=== PATIENT | male | born 1950 | race Caucasian/White ===

== ENCOUNTER 2019-03-15 12:45 | Emergency (ER) | payer OTHER, MEDICAID ==
[~2019-03-15] VITALS: Ht 154.9 cm; Wt 54.0 kg
--- NOTE | 2019-03-15 12:45 | NUR ---
Patient BIBA ACLS, transferred to bed 3. RN evaluating patient at bedside.
[2019-03-15 12:48] VITALS: BP 146/93
--- NOTE | 2019-03-15 12:50 | NUR ---
Dr. Davis evaluating patient at bedside.
--- NOTE | 2019-03-15 13:00 | NUR ---
[facility] AND [facility] COORDINATOR FROM [facility] DAY CARE FOR ALOC. PER EMS PT NEUROLOGICALLY NOT AT BASE LINE ; CAN'T TALK , DROOLING X TODAY. BLOOD SUGAR 71. HX: MR, HTN, GERD,EPILEPSY. AT ER PT CAN SPEAK SLOWLY,OREITED TO HIS NAME. PATIENT POSITIONED FOR COMFORT; HOB ELEVATED; BEDRAILS UP X2; BED DOWN. ER MD MADE AWARE OF PT STATUS.
[2019-03-15] MEDS ORDERED: PIPERACILLIN/TAZOBACTAM 3.375 GM in DEXT 5% MINI-BAG PLUS 50 ML IV ONE (13:05)
[2019-03-15] MEDS ORDERED: NACL 0.9% 1,500 ML IV SCH (13:05)
[2019-03-15] MEDS ORDERED: ALBUTEROL SULFATE/IPRATROPIU 3 ML SOL IH ONE (13:10)
--- NOTE | 2019-03-15 13:17 | NUR ---
xray tech at bedside.
[2019-03-15] MEDS ORDERED: PIPERACILLIN/TAZOBACTAM 3.375 GM VIAL IV ONE (13:25)
[2019-03-15 14:25] LABS: ACETONE, SERUM NEGATIVE (NEGATIVE)
[2019-03-15 14:27] LABS: BASOPHILS % (AUTO) 0.1 % (0.0-2.0); EOSINOPHILS # (AUTO) 0.1 K/uL (0-0.4); EOSINOPHILS % (AUTO) 0.7 % (0.0-4.0); HEMATOCRIT 44.1 % (36-52); HEMOGLOBIN 14.9 g/dL (12.0-18.0); LYMPHOCYTES # (AUTO) 6.1 K/uL (2.0-11.5); LYMPHOCYTES % (AUTO) 61.9 % (20.5-51.1); MEAN CORPUSCULAR HEMOGLOBIN 33 pg (27-31); MEAN CORPUSCULAR HGB CONC 34 g/dL (33-37); MEAN CORPUSCULAR VOLUME 97.3 fL (80-94); MONOCYTES # (AUTO) 0.4 K/uL (0.8-1.0); MONOCYTES % (AUTO) 3.6 % (1.7-9.3); NEUTROPHILS # (AUTO) 3.3 K/uL (1.8-7.7); NEUTROPHILS % (AUTO) 33.7 % (42.2-75.2); PLATELET COUNT (AUTO) 227 K/uL (140-450); RED BLOOD CELL COUNT(AUTO) 4.54 MIL/uL (4.20-6.10); RED CELL DISTRIBUTION WIDTH 14.2 % (11.6-13.7); WHITE BLOOD COUNT (AUTO) 9.8 K/uL (4.8-10.8)
[2019-03-15 14:28] LABS: ANION GAP 10.9 (8-16); CARBON DIOXIDE 30.2 mmol/L (21-32); CHLORIDE 102 mmol/L (98-107); CREATININE 0.6 mg/dL (0.7-1.3); GLUCOSE 71 mg/dL (74-106); POTASSIUM 4.1 mmol/L (3.5-5.1); SODIUM SERUM 139 mmol/L (136-145); UREA NITROGEN, BLOOD 10 mg/dL (7-18)
[2019-03-15 14:45] LABS: ALBUMIN 3.4 g/dL (3.4-5.0); ASPARTATE AMINOTRANSFERASE 23 U/L (15-37); MAGNESIUM 2.1 mg/dL (1.8-2.4); TOTAL BILIRUBIN 0.2 mg/dL (0.0-1.0)
[2019-03-15 16:01] LABS: BILIRUBIN,URINE NEGATIVE (NEGATIVE); BLOOD, URINE 2+ (NEGATIVE); COLOR,URINE YELLOW (YELLOW); LEUKOCYTE ESTERASE ,URINE 1+ (NEGATIVE); NITRITE, URINE NEGATIVE (NEGATIVE); PH,URINE 6.5 (5.0-9.0); UGLUCOSE NEGATIVE (NEGATIVE)
--- NOTE | 2019-03-15 16:03 | NUR ---
Patient appears to be resting comfortably in bed. Vital Signs within normal limits. Respirations even and unlabored.will continue to monitor.
[2019-03-15 17:12] VITALS: BP 103/35
--- NOTE | 2019-03-15 17:12 | NUR ---
Patient discharged with v/s stable. Written and verbal after care instructions given and explained. Patient verbalized understanding. Ambulatory with W/C .All questions addressed prior to discharge. Advised to follow up with PMD.
[2019-03-15 17:13] LABS: APPEARANCE,URINE HAZY (CLEAR)
[2019-03-15 17:30] LABS: RBC,URINE >100 /HPF (0-5); WBC,URINE 0-5 /HPF (0-5)
== END 2019-03-15 17:12 | disposition home or self-care (01) ==
LOC: MED 12:45
DX: E86.0 Dehydration (principal); E86.1 Hypovolemia; G80.9 Cerebral palsy, unspecified; F73 Profound intellectual disabilities; G80.0 Spastic quadriplegic cerebral palsy
CPT/HCPCS: 36415; 36600; 70450; 71045; 80053; 80173; 81001; 82009; 82803; 83605; 83735; 84484; 85025; 87040; 87086; 87205; 89220; 93005; 94640; 96365; 99284; C1758; J2543; J7030; J7060; J7620; Q0092; 87070

== ENCOUNTER 2021-11-07 17:13 | Inpatient (IN) | payer OTHER, MEDICAID, SELFPAY ==
[~2021-11-07] VITALS: Ht 165.1 cm; Wt 74.8 kg
[2021-11-07 17:18] VITALS: BP 140/83
--- NOTE | 2021-11-07 17:59 | NUR ---
BIBA TO ER [facility]
--- NOTE | 2021-11-07 18:41 | NUR ---
pt taken to xray via [facility]
--- NOTE | 2021-11-07 18:47 | NUR ---
LINDSEY ANTONY AT [facility]. [phone]. CALL FOR UPDATES
--- NOTE | 2021-11-07 18:47 | NUR ---
PTS CAREGIVER LUDIVINALASHONDA DENISE CALLED FROM [facility]; FOR QUESTIONS AND UPDATE CALL LINDSEY ANTONY [phone]
--- NOTE | 2021-11-07 18:48 | NUR ---
[facility]
[2021-11-07] MEDS ORDERED: AZITHROMYCIN 500 MG in DEXTROSE 5% 250 ML IV ONE (19:00)
--- NOTE | 2021-11-07 19:00 | NUR ---
PT WAS ON 2L N/C PER MEDICS, SPO2 100%. TOOK PT OFF 02, NO RESPIRATORY DISTRESS NOTED, SPO2 95%. DR MENARD MADE AWARE
--- NOTE | 2021-11-07 19:30 | NUR ---
REPORT GIVEN TO ESTEFANIA CEE, TRANSFER OF CARE AT THIS TIME
--- NOTE | 2021-11-07 19:53 | NUR ---
SKIP TENDER TEXTED FOR ADMISSION AT 1947
[2021-11-07 21:48] LABS: BASOPHILS % (AUTO) 0.4 % (0.0-2.0); EOSINOPHILS # (AUTO) 0.3 K/uL (0-0.4); EOSINOPHILS % (AUTO) 4.3 % (0.0-4.0); HEMATOCRIT 39.8 % (36-52); HEMOGLOBIN 13.2 g/dL (12.0-18.0); LYMPHOCYTES % (AUTO) 46.4 % (20.5-51.1); MEAN CORPUSCULAR HEMOGLOBIN 32 pg (27-31); MEAN CORPUSCULAR HGB CONC 33 g/dL (33-37); MEAN CORPUSCULAR VOLUME 96.5 fL (80-94); MONOCYTES # (AUTO) 0.4 K/uL (0.8-1.0); MONOCYTES % (AUTO) 6.3 % (1.7-9.3); NEUTROPHILS # (AUTO) 2.8 K/uL (1.8-7.7); NEUTROPHILS % (AUTO) 42.6 % (42.2-75.2); PLATELET COUNT (AUTO) 248 K/uL (140-450); RED BLOOD CELL COUNT(AUTO) 4.12 MIL/uL (4.20-6.10); RED CELL DISTRIBUTION WIDTH 13.6 % (11.6-13.7); WHITE BLOOD COUNT (AUTO) 6.6 K/uL (4.8-10.8)
[2021-11-07 22:01] LABS: ALBUMIN 2.9 g/dL (3.4-5.0); ANION GAP 12.3 (8-16); ASPARTATE AMINOTRANSFERASE 27 U/L (15-37); CARBON DIOXIDE 24.4 mmol/L (21-32); CHLORIDE 107 mmol/L (98-107); CREATININE 0.6 mg/dL (0.6-1.3); GLUCOSE 93 mg/dL (74-106); POTASSIUM 4.7 mmol/L (3.5-5.1); SODIUM SERUM 139 mmol/L (136-145); TOTAL BILIRUBIN 0.3 mg/dL (0.0-1.0); UREA NITROGEN, BLOOD 16 mg/dL (7-18)
[2021-11-07] MEDS ORDERED: AZITHROMYCIN 500 MG INJ VIAL IV ONE (23:50)
[2021-11-07] MEDS ORDERED: cefTRIAXone 1,000 MG VIAL ONE (23:51)
--- NOTE | 2021-11-08 01:00 | NUR ---
PT PULLED OUT IV UNDERNEATH FROM BANDAGE. MEDS WERE COMPLETE AT THE TIME.
[2021-11-08] MEDS ORDERED: ACET-2619 PO (06:02)
[2021-11-08] MEDS ORDERED: BISM262S40 PO (06:08)
[2021-11-08] MEDS ORDERED: CALC-1305 PO (06:08)
[2021-11-08] MEDS ORDERED: CETI10SG1 PO (06:08)
[2021-11-08] MEDS ORDERED: FERR325E14 PO (06:10)
[2021-11-08] MEDS ORDERED: [UNRECOGNIZED DRUG - CODE] PO (06:24)
[2021-11-08] MEDS ORDERED: LORA10TA19 PO (06:24)
[2021-11-08] MEDS ORDERED: TAMS0.4C96 PO (06:24)
[2021-11-08] MEDS ORDERED: MONT10TA35 PO (06:24)
[2021-11-08] MEDS ORDERED: [UNRECOGNIZED DRUG - OTHER] (06:24)
[2021-11-08] MEDS ORDERED: LOPE1TAB14 PO (06:24)
--- NOTE | 2021-11-08 07:30 | NUR ---
RECEIVED REPORT FROM ESTEFANIA CEE, TRANSFER OF CARE AT THIS TIME
--- NOTE | 2021-11-08 10:19 | NUR ---
PT RESTING IN BED WITH EVEN AND UNLABORED RESPIRATIONS, NO SIGNS OF RESPIRATORY DISTRESS. PT REPOSITIONED FOR COMFORT, ALL NEEDS MET AT THIS TIME
--- NOTE | 2021-11-08 12:30 | NUR ---
PT ASSISTED WITH LUNCH.
[2021-11-08] MEDS ORDERED: BISMUTH SUBSALICYLATE 15 ML UDBTL PO SCH (13:15)
[2021-11-08] MEDS ORDERED: POTASSIUM CHLORIDE 10 MEQ TABER PO PRN (13:20)
[2021-11-08] MEDS ORDERED: MAG SULF 2000 MG/WATER PREMIX 50 ML IV PRN (13:20)
[2021-11-08] MEDS ORDERED: ALBUTEROL SULFATE/IPRATROPIU 3 ML SOL IH PRN (13:20)
[2021-11-08] MEDS ORDERED: MORPHINE SULFATE 2 MG/ML SYR IVP PRN (13:25)
[2021-11-08] MEDS ORDERED: ONDANSETRON 4 MG/2 ML VIAL IM/IVP PRN (13:25)
[2021-11-08] MEDS ORDERED: DOCUSATE SODIUM 100 MG GELCAP PO PRN (13:25)
[2021-11-08] MEDS ORDERED: ACETAMINOPHEN 325 MG TAB PO PRN (13:25)
[2021-11-08] MEDS ORDERED: ZOLPIDEM 5 MG TAB PO PRN (13:25)
[2021-11-08] MEDS ORDERED: LORazepam 2 MG/ML VIAL IM/IVP PRN (13:25)
[2021-11-08] MEDS ORDERED: ALBUTEROL HFA MDI 90 MCG/ACTUATION 8 GM INH PRN (13:25)
[2021-11-08] MEDS ORDERED: HYDROcodone/APAP 5/325 MG 1 TAB TAB PO PRN (13:25)
--- NOTE | 2021-11-08 13:27 | NUR ---
PT RESTING IN BED WITH EVEN AND UNLABORED RESPIRATIONS, NO SIGNS OF DISTRESS. PT SPO2 96% RA.
[2021-11-08] MEDS ORDERED: PRIM250T70 PO (13:29)
[2021-11-08 13:56] LABS: PROTHROMBIN TIME 10.2 secs (10.8-13.4)
[2021-11-08] MEDS: NACL 0.9% 1,000 ML IV SCH (14:00)
[2021-11-08 14:07] LABS: CHOL/HDL RATIO 3.5 (1-4.5); THYROID STIMULATING HORMONE 1.59 uIU/mL (0.34-3.74)
[2021-11-08] MEDS: PRIMIDONE 50 MG TAB PO SCH ×2 (15:13→21:00)
--- NOTE | 2021-11-08 16:30 | NUR ---
PT SOILED HIMSELF, PT CLEANED, PROVIDED NEW CLEAN DIAPER, GOWN AND BLANKETS. PT REPOSITIONED FOR COMFORT, ALL NEEDS MET AT THIS TIME.
[2021-11-08 17:12] LABS: APPEARANCE,URINE CLEAR (CLEAR); BILIRUBIN,URINE NEGATIVE (NEGATIVE); BLOOD, URINE 1+ (NEGATIVE); COLOR,URINE YELLOW (YELLOW); LEUKOCYTE ESTERASE ,URINE NEGATIVE (NEGATIVE); NITRITE, URINE NEGATIVE (NEGATIVE); PH,URINE 7.5 (5.0-9.0); UGLUCOSE NEGATIVE (NEGATIVE)
[2021-11-08] MEDS: ALBUTEROL SULFATE/IPRATROPIU 3 ML SOL IH SCH (18:00)
--- NOTE | 2021-11-08 19:20 | NUR ---
REPORT GIVEN TO MARYAN ANTONY, TRANSFER OF CARE AT THIS TIME
--- NOTE | 2021-11-08 19:45 | NUR ---
RT AT BEDSIDE ADMINISTERING BREATHING TREATMENT TOLERATED WELL.
[2021-11-08] MEDS: ZINC SULF 220 MG CAP PO SCH (21:00)
--- NOTE | 2021-11-08 23:00 | NUR ---
Patient appears to be resting comfortably in bed. Vital Signs within normal limits. Respirations even and unlabored.
--- NOTE | 2021-11-09 04:50 | NUR ---
SLEPT MOST OF THE TIME, NO COMPLAINED MADE
--- NOTE | 2021-11-09 07:30 | NUR ---
ASSUMED CARE AT THIS TIME. PT RESTING IN BED WITH EVEN AND UNLABORED RESPIRATIONS, NO SIGNS OF DISTRESS NOTED.
[2021-11-09] MEDS: ZINC SULF 220 MG CAP PO SCH ×2 (09:30→21:00)
[2021-11-09] MEDS: AZITHROMYCIN 250 MG TAB PO SCH (09:30)
[2021-11-09] MEDS: FERROUS SULFATE 325 MG TABEC PO SCH (09:31)
[2021-11-09] MEDS: TAMSULOSIN 0.4 MG CAP PO SCH (09:31)
[2021-11-09] MEDS: ASCORBIC ACID 500 MG TAB PO SCH (09:31)
[2021-11-09] MEDS: VITAMIN D 400 IU TAB PO SCH (09:32)
[2021-11-09] MEDS: LORATADINE 10 MG TAB PO SCH (09:32)
[2021-11-09] MEDS: NACL 0.9% 1,000 ML IV SCH ×2 (10:00→22:45)
--- NOTE | 2021-11-09 10:20 | NUR ---
PATIENT HAS BEEN SCREENED AND CATEGORIZED MODERATE NUTRITION RISK. PATIENT WILL BE SEEN WITHIN 3-5 DAYS OF ADMISSION. 11/11/2021-11/13/[address]
[2021-11-09] MEDS: MONTELUKAST SODIUM 10 MG TAB PO SCH (11:09)
[2021-11-09] MEDS: PRIMIDONE 50 MG TAB PO SCH ×2 (11:09→21:00)
--- NOTE | 2021-11-09 13:16 | NUR ---
PT ASSISTED WITH LUNCH, PT ATE 100% OF HIS MEAL. ALL NEEDS MET AT THIS TIME.
[2021-11-09] MEDS ORDERED: VITD400 PO (16:34)
[2021-11-09] MEDS ORDERED: DEXA6TAB1 PO (16:34)
[2021-11-09] MEDS ORDERED: AZIT250T11 PO (16:34)
[2021-11-09] MEDS ORDERED: VITC500 PO (16:34)
[2021-11-09] MEDS ORDERED: ZINC220C29 PO (16:34)
[2021-11-09] MEDS: ALBUTEROL SULFATE/IPRATROPIU 3 ML SOL IH SCH ×2 (18:00→22:45)
[2021-11-09 18:18] LABS: BASOPHILS % (AUTO) 0.2 % (0.0-2.0); EOSINOPHILS % (AUTO) 0.1 % (0.0-4.0); HEMOGLOBIN 14.5 g/dL (12.0-18.0); LYMPHOCYTES # (AUTO) 2.4 K/uL (2.0-11.5); LYMPHOCYTES % (AUTO) 35.9 % (20.5-51.1); MEAN CORPUSCULAR HEMOGLOBIN 32 pg (27-31); MEAN CORPUSCULAR HGB CONC 35 g/dL (33-37); MEAN CORPUSCULAR VOLUME 93.5 fL (80-94); MONOCYTES # (AUTO) 0.4 K/uL (0.8-1.0); MONOCYTES % (AUTO) 6.1 % (1.7-9.3); NEUTROPHILS # (AUTO) 3.8 K/uL (1.8-7.7); NEUTROPHILS % (AUTO) 57.7 % (42.2-75.2); PLATELET COUNT (AUTO) 324 K/uL (140-450); RED BLOOD CELL COUNT(AUTO) 4.49 MIL/uL (4.20-6.10); RED CELL DISTRIBUTION WIDTH 13.5 % (11.6-13.7); WHITE BLOOD COUNT (AUTO) 6.6 K/uL (4.8-10.8)
[2021-11-09 18:31] LABS: ALBUMIN 3.2 g/dL (3.4-5.0); ANION GAP 12.8 (8-16); ASPARTATE AMINOTRANSFERASE 19 U/L (15-37); CARBON DIOXIDE 25.5 mmol/L (21-32); CHLORIDE 104 mmol/L (98-107); CREATININE 0.8 mg/dL (0.6-1.3); GLUCOSE 142 mg/dL (74-106); LACTATE DEHYDROGENASE 114 U/L (85-227); POTASSIUM 4.3 mmol/L (3.5-5.1); SODIUM SERUM 138 mmol/L (136-145); TOTAL BILIRUBIN 0.3 mg/dL (0.0-1.0); UREA NITROGEN, BLOOD 17 mg/dL (7-18)
[2021-11-09 18:33] LABS: MAGNESIUM 1.9 mg/dL (1.8-2.4); PHOSPHORUS 2.8 mg/dL (2.5-4.9)
[2021-11-09 18:43] LABS: CARBON DIOXIDE 25.3 mmol/L (21-32); CHLORIDE 105 mmol/L (98-107); CREATININE 0.7 mg/dL (0.6-1.3); GLUCOSE 142 mg/dL (74-106); POTASSIUM 4.3 mmol/L (3.5-5.1); SODIUM SERUM 138 mmol/L (136-145); UREA NITROGEN, BLOOD 16 mg/dL (7-18)
--- NOTE | 2021-11-09 19:03 | NUR ---
PT ATE 100% OF HIS DINNER. NO SIGNS OF DISTRESS AT THIS TIME.
--- NOTE | 2021-11-09 19:36 | NUR ---
REPORT GIVEN TO MARYAN ANTONY, TRANSFER OF CARE AT THIS TIME
--- NOTE | 2021-11-09 19:45 | NUR ---
PATIENT PULLED UP HIS IV. TRYING TO INSERT .
--- NOTE | 2021-11-09 19:45 | NUR ---
PATIENT WAS SOAKED WITH URINE AND FECES, CLEANED AND KEEP DRY, AND COMFORTABLE.IV WAS INSERTED AT HIS RT LOWER LEG, INTACT AND INFUSING WELL.
--- NOTE | 2021-11-09 21:00 | NUR ---
ALL DUE MEDICINES WAS GIVEN , TOLERATED WELL.FOR HIS BREATHING TREATMENT, ITS NOT INDICATED FOR HIS BREATHING TREATMENT PER RT.
--- NOTE | 2021-11-10 00:02 | NUR ---
Patient appears to be resting comfortably in bed. Vital Signs within normal limits. Respirations even and unlabored.
--- NOTE | 2021-11-10 02:00 | NUR ---
SWAB FOR BEREKET, SENT TO LAB
--- NOTE | 2021-11-10 07:30 | NUR ---
report given to Vidya Rasmussen , transfer of care at this time.
--- NOTE | 2021-11-10 07:30 | NUR ---
RECEIVED PT IN [facility] ALERT FOLLOWS SIMPLE COMMANDS. IV INTACT AND PATENT INFUSING FLUIDS PER ORDER. VSS. BREATHING UNLABORED. NAD. SAFETY MAINTAINED.
--- NOTE | 2021-11-10 08:03 | NUR ---
SPOKE TO LINDSEY ANTONY FROM [facility] PAPERWORK NEEDS TO BE FAXED TO HER DIRECTLY THEN SENT TO [facility] FOR [facility]VIEW BEFORE PT CAN BE DC BACK TO FACILITY.
[2021-11-10] MEDS: PRIMIDONE 50 MG TAB PO SCH (09:00)
[2021-11-10] MEDS: MONTELUKAST SODIUM 10 MG TAB PO SCH (09:00)
[2021-11-10] MEDS: FERROUS SULFATE 325 MG TABEC PO SCH (09:00)
[2021-11-10] MEDS: TAMSULOSIN 0.4 MG CAP PO SCH (09:00)
[2021-11-10] MEDS: LORATADINE 10 MG TAB PO SCH (09:00)
[2021-11-10] MEDS: VITAMIN D 400 IU TAB PO SCH (09:00)
[2021-11-10] MEDS: ZINC SULF 220 MG CAP PO SCH (09:00)
[2021-11-10] MEDS: ASCORBIC ACID 500 MG TAB PO SCH (09:00)
[2021-11-10] MEDS: AZITHROMYCIN 250 MG TAB PO SCH (09:00)
[2021-11-10 10:24] LABS: MAGNESIUM 1.9 mg/dL (1.8-2.4); PHOSPHORUS 3.5 mg/dL (2.5-4.9)
[2021-11-10 10:38] LABS: ALBUMIN 3.2 g/dL (3.4-5.0); ANION GAP 10.6 (8-16); ASPARTATE AMINOTRANSFERASE 16 U/L (15-37); CARBON DIOXIDE 29.2 mmol/L (21-32); CHLORIDE 103 mmol/L (98-107); CREATININE 0.6 mg/dL (0.6-1.3); GLUCOSE 92 mg/dL (74-106); LACTATE DEHYDROGENASE 99 U/L (85-227); POTASSIUM 3.8 mmol/L (3.5-5.1); SODIUM SERUM 139 mmol/L (136-145); TOTAL BILIRUBIN 0.3 mg/dL (0.0-1.0); UREA NITROGEN, BLOOD 13 mg/dL (7-18)
[2021-11-10 11:04] LABS: BASOPHILS % (AUTO) 0.6 % (0.0-2.0); EOSINOPHILS # (AUTO) 0.1 K/uL (0-0.4); EOSINOPHILS % (AUTO) 2.1 % (0.0-4.0); HEMOGLOBIN 13.9 g/dL (12.0-18.0); LYMPHOCYTES # (AUTO) 2.8 K/uL (2.0-11.5); LYMPHOCYTES % (AUTO) 46.8 % (20.5-51.1); MEAN CORPUSCULAR HEMOGLOBIN 32 pg (27-31); MEAN CORPUSCULAR HGB CONC 34 g/dL (33-37); MEAN CORPUSCULAR VOLUME 94.7 fL (80-94); MONOCYTES # (AUTO) 0.4 K/uL (0.8-1.0); NEUTROPHILS # (AUTO) 2.6 K/uL (1.8-7.7); NEUTROPHILS % (AUTO) 43.5 % (42.2-75.2); PLATELET COUNT (AUTO) 300 K/uL (140-450); RED BLOOD CELL COUNT(AUTO) 4.33 MIL/uL (4.20-6.10); RED CELL DISTRIBUTION WIDTH 13.4 % (11.6-13.7); WHITE BLOOD COUNT (AUTO) 5.9 K/uL (4.8-10.8)
--- NOTE | 2021-11-10 12:00 | NUR ---
PT FINISHED 100% OF LUNCH NAD. PENDING DISPO.
[2021-11-10 12:07] LABS: T4 (THYROXINE) 6.8 ug/dL (4.5-12.0)
[2021-11-10] MEDS: NACL 0.9% 1,000 ML IV SCH (15:21)
--- NOTE | 2021-11-10 16:44 | NUR ---
SP;GERARDO TO MACHINE OPERATOR HELPER STATES INSURANCE WILL NOT COVER HOME 02 D/T OXYGEN SATURATION BEING ABOVE 94% ON RA. REPORT GIVEN TO LAKHWINDER WHO IS RN IN CHARGE OF BOARD IN CARE PT WILL BE TRANSPORTED TO. [facility] WILL STAFF RN WITHIN 1 HOUR. LAKHWINDER MADE AWARE
--- NOTE | 2021-11-10 17:00 | NUR ---
REPORT GIVEN TO VANESSA ETS AT BEDSIDE FOR CONTINUATION OF CARE. PT STABLE ON DC
[2021-11-10 17:44] VITALS: BP 124/70
[2021-11-10] MEDS: ALBUTEROL SULFATE/IPRATROPIU 3 ML SOL IH SCH (18:00)
== END 2021-11-10 17:44 | disposition home or self-care (01) | DRG 194 ==
LOC: MED 17:13 → MTU 11-08 13:02
DX: J18.9 Pneumonia, unspecified organism (principal); E44.1 Mild protein-calorie malnutrition; G82.20 Paraplegia, unspecified; D68.59 Other primary thrombophilia; G40.909 Epilepsy, unspecified, not intractable, without status epilepticus; J30.1 Allergic rhinitis due to pollen; F79 Unspecified intellectual disabilities; E86.0 Dehydration; K29.70 Gastritis, unspecified, without bleeding; K59.00 Constipation, unspecified; D50.9 Iron deficiency anemia, unspecified; I11.9 Hypertensive heart disease without heart failure; N40.0 Benign prostatic hyperplasia without lower urinary tract symptoms; Z20.822 Contact with and (suspected) exposure to COVID-19; M81.0 Age-related osteoporosis without current pathological fracture; Z86.16 Personal history of COVID-19; Z79.899 Other long term (current) drug therapy; Z68.27 Body mass index [BMI] 27.0-27.9, adult
CPT/HCPCS: 36415; 36600; 71045; 71046; 80048; 80053; 81003; 82140; 82150; 82803; 83036; 83605; 83615; 83690; 83735; 83880; 84100; 84134; 84436; 84443; 84484; 85025; 85379; 85610; 85651; 85730; 86140; 87040; 93005; 96365; 96368; 99285; J0456; J0696; J1644; J7060; Q0092; U0003